=== PATIENT | female | born 1985 | race African-American/Black ===

== ENCOUNTER 2022-10-21 05:30 | Inpatient (IN) | payer BC ==
[~2022-10-21 05:30] MED LIST: Acetaminophen 500 MG TAB PO PRN; Butorphanol Tartrate 1 MG/ML VIAL SLOW IVP PRN; Carboprost 250 MCG/ML AMP IM PRN; Diphenoxylate HCl/Atropine Tablet PO PRN; Ibuprofen 800 MG TAB PO PRN; Lidocaine 1% (PF) 30 ML VIAL SC PRN; Misoprostol 200 MCG TAB PR PRN; NS w/ Oxytocin 30 units 500 ML IV SCH; Ondansetron PF 4 MG/2 ML Vial IVP PRN; Promethazine HCl 25 MG/ML VIAL IM PRN; Tranexamic Acid 1,000 MG in Sodium Chloride 0.9% 250 ML 250 ML IVPB PRN; Zolpidem Tartrate 5 MG TAB PO PRN; hydrALAZINE 20 MG/ML VIAL SLOW IVP PRN
[2022-10-21] MEDS ORDERED: Lactated Ringer's 1,000 ML IV SCH (06:00)
[2022-10-21 06:22] VITALS: BMI 35.4
[2022-10-21] MEDS ORDERED: ePHEDrine Sulfate 50 MG/10 ML VIAL ONE (08:00)
[2022-10-21] MEDS ORDERED: Bupivacaine 0.25% HCL 30 ML VIAL ONE (08:00)
[2022-10-21] MEDS: Misoprostol 100 MCG TAB VAG SCH ×2 (08:17→18:15)
[2022-10-21 08:32] LABS: Hemoglobin 9.4 g/dL (12.0-15.5); Mean Corpuscular HGB CONC 32.1 g/dL (32.0-36.0); Mean Corpuscular Hemoglobin 24.8 pg (27.0-33.0); Mean Corpuscular Volume 77.3 fl (81.6-98.3); Mean Platelet Volume 10.9 fl (7.4-10.4); Platelet Count 188 10x3/uL (150-450); Red Blood Cell (RBC) Count 3.79 10x6/uL (3.90-5.03); White Blood Cell (WBC) Count 5.4 10x3/uL (3.5-10.5)
[2022-10-21 09:09] LABS: HBSAg Index 0.14 S/CO (0-0.99); Hep B Surf Ag Non-Reactive S/CO (NonReactive)
[2022-10-21 09:10] LABS: Syphilis Antibody Nonreactive (Nonreactive); Syphilis Antibody Index 0.02 S/CO (<1.00 Non-Reactive)
[2022-10-21 09:56] LABS: SARS-CoV-2 NAA Rapid Test Not Detected (NotDetected)
[2022-10-21] MEDS ORDERED: Fentanyl 2 mcg/Bup 0.1% Cadd 100 ML ONE (14:39)
[2022-10-21] MEDS ORDERED: Methylergonovine 0.2 MG/ML VIAL ONE (17:05)
[2022-10-21] MEDS ORDERED: Lanolin Ointment 7 GM TUBE TOP PRN (18:44)
[2022-10-21] MEDS ORDERED: Benzocaine-Menthol 82.5 ML CAN TOP PRN (18:44)
[2022-10-21] MEDS ORDERED: HYDROcodone/Acetaminophen 5/325 mg Tablet PO PRN ×2 (18:44)
[2022-10-21] MEDS ORDERED: NS w/ Oxytocin 30 units 500 ML IV SCH (18:44)
[2022-10-21] MEDS ORDERED: Promethazine HCl 25 MG/ML VIAL IM PRN (18:44)
[2022-10-21] MEDS ORDERED: diphenhydrAMINE 25 MG CAP PO PRN (18:44)
[2022-10-21] MEDS ORDERED: Bisacodyl 10 MG SUPP PR PRN (18:44)
[2022-10-21] MEDS ORDERED: Zolpidem Tartrate 5 MG TAB PO PRN (18:44)
[2022-10-21] MEDS ORDERED: Boostrix 0.5 ML (Tdap) VIAL (>/=7 yrs of age) IM ONE (18:44)
[2022-10-21] MEDS ORDERED: Preparation H Ointment 28 GM TUBE PR PRN (18:44)
[2022-10-21] MEDS ORDERED: Measles/Mumps/Rubella 10 MCG/0.5 ML VIAL SC ONE (18:44)
[2022-10-21] MEDS ORDERED: Misoprostol 200 MCG TAB VAG PRN (18:44)
[2022-10-21] MEDS ORDERED: hydrALAZINE 20 MG/ML VIAL SLOW IVP PRN (18:44)
[2022-10-21] MEDS ORDERED: Methylergonovine 0.2 MG/ML VIAL IM PRN (18:44)
[2022-10-21] MEDS ORDERED: Ondansetron PF 4 MG/2 ML Vial IVP PRN (18:44)
[2022-10-21] MEDS ORDERED: Milk Of Magnesia 30 ML UDCUP PO PRN (18:44)
[2022-10-21] MEDS ORDERED: Varicella virus, LIVE 0.5 ML VIAL SC ONE (18:44)
[2022-10-21] MEDS: Docusate 100 MG CAP PO SCH (21:19)
[2022-10-21] MEDS: Ibuprofen 800 MG TAB PO SCH (21:19)
[2022-10-22 04:10] LABS: Hemoglobin 9.2 g/dL (12.0-15.5); Mean Corpuscular HGB CONC 32.4 g/dL (32.0-36.0); Mean Corpuscular Hemoglobin 24.9 pg (27.0-33.0); Mean Corpuscular Volume 76.8 fl (81.6-98.3); Mean Platelet Volume 10.9 fl (7.4-10.4); Platelet Count 170 10x3/uL (150-450); RBC Distribution Width 13.9 % (11.5-14.5); White Blood Cell (WBC) Count 8.7 10x3/uL (3.5-10.5)
[2022-10-22] MEDS: Ibuprofen 800 MG TAB PO SCH ×2 (05:51→14:42)
[2022-10-22] MEDS: Docusate 100 MG CAP PO SCH (08:15)
[2022-10-22] MEDS: Ferrous Sulfate 325 MG TAB PO SCH ×2 (08:15→17:22)
[2022-10-22] MEDS ORDERED: Prenatal Vitamin 1 TAB PO SCH (09:00)
[2022-10-22 17:43] VITALS: BP 120/55; TEMP 99.1
== END 2022-10-22 20:00 | disposition home or self-care (01) | DRG 807 ==
LOC: CSHLD 05:45 → CSHPP 20:15
PROVIDERS: ADMIT Obstetrics & Gynecology; ATTEND Obstetrics & Gynecology
PROC: 10E0XZZ Delivery of Products of Conception, External Approach (ICD-10-PCS; principal; 2022-10-21)
DX: O10.92 Unspecified pre-existing hypertension complicating childbirth (principal); Z37.0 Single live birth; Z3A.38 38 weeks gestation of pregnancy; Z20.822 Contact with and (suspected) exposure to COVID-19; O70.0 First degree perineal laceration during delivery
CPT/HCPCS: 36415; 51702; 85027; 86780; 86850; 86900; 86901; 87340; J2210; J2590; S0020